=== PATIENT | female | born 1990 | race Caucasian/White ===

== ENCOUNTER 2018-12-26 12:48 | Emergency (ER) | payer OTHER ==
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
[2018-12-26 13:31] VITALS: BP 103/80
== END 2018-12-26 14:41 | disposition home or self-care (01) ==
LOC: UCCORT 12:48
DX: S60.00XA Contusion of unspecified finger without damage to nail, initial encounter (principal); S60.222A Contusion of left hand, initial encounter; S63.92XA Sprain of unspecified part of left wrist and hand, initial encounter; X58.XXXA Exposure to other specified factors, initial encounter; Y93.89 Activity, other specified; Y92.838 Other recreation area as the place of occurrence of the external cause
CPT/HCPCS: 99201; G0463